=== PATIENT | female | born 1990 | race Caucasian/White ===

== ENCOUNTER 2017-10-11 13:46 | Inpatient (IN) | payer BC, OTHER ==
[~2017-10-11] VITALS: Ht 170.2 cm; Wt 113.9 kg
[2017-10-11] MEDS ORDERED: SODIUM CHLORIDE FLUSH 10ML SYR IVF ONE (14:30)
[2017-10-11] MEDS ORDERED: NAPR220C2 PO (14:48)
[2017-10-11 14:57] LABS: BASOPHILS # (AUTO) 0.05 x10^3/uL (0-0.1); BASOPHILS % (AUTO) 1 % (0-1); EOSINOPHILS # (AUTO) 0.12 x10^3/uL (0-0.4); EOSINOPHILS % (AUTO) 1 % (1-7); LYMPHOCYTES # (AUTO) 1.91 x10^3/uL (1-3.4); LYMPHOCYTES % (AUTO) 17 % (22-44); MD NO; MEAN CORPUSCULAR HEMOGLOBIN 29.3 pg (27.0-34.8); MEAN CORPUSCULAR HGB CONC 33.8 g/dL (32.4-35.8); MEAN CORPUSCULAR VOLUME 86.8 fL (80-100); MEAN PLATELET VOLUME 7.5 fL (7.4-10.4); MONOCYTES # (AUTO) 0.82 x10^3/uL (0.2-0.8); MONOCYTES % (AUTO) 7 % (2-9); NEUTROPHILS % (AUTO) 74 % (42-75); PLATELET COUNT 411 x10^3/uL (130-400); RED BLOOD COUNT 5.15 x10^6/uL (3.82-5.3); RED CELL DISTRIBUTION WIDTH 14.3 % (9.6-15.2)
[2017-10-11 15:07] LABS: ALANINE AMINOTRANSFERASE 601 U/L (12-78); ALBUMIN 3.8 g/dL (3.4-5.0); ANION GAP 8 mmol/L (5-15); CALCIUM 8.8 mg/dL (8.5-10.1); CHLORIDE 105 mmol/L (98-107); CREATININE 0.86 mg/dL (0.55-1.02)
[2017-10-11] MEDS ORDERED: FAMOTIDINE 20 MG TABLET ONE (15:07)
[2017-10-11] MEDS ORDERED: ONDANSETRON ODT 4 MG ONE (15:08)
[2017-10-11] MEDS ORDERED: MAALOX/HYOSCYAMINE/LIDOCAINE 45 ML BTL ONE (15:08)
[2017-10-11 15:12] LABS: ALKALINE PHOSPHATASE 183 U/L (45-117); TOTAL PROTEIN 8.2 g/dL (6.4-8.2)
[2017-10-11] MEDS ORDERED: ONDANSETRON ODT 4 MG PO ONE (15:30)
[2017-10-11] MEDS ORDERED: SODIUM CHLORIDE 0.9% 1,000ML IVBOLUS ONE (15:30)
[2017-10-11] MEDS ORDERED: morphine SULFATE 10 MG/ML, 1ML IVPush ONE (15:30)
[2017-10-11] MEDS ORDERED: MAALOX/HYOSCYAMINE/LIDOCAINE 45 ML BTL PO ONE (15:30)
[2017-10-11] MEDS ORDERED: FAMOTIDINE 20 MG TABLET PO ONE (15:30)
[2017-10-11 15:38] LABS: CULTURE INDICATED? YES; MICROSCOPIC INDICATED
[2017-10-11] MEDS ORDERED: MORPHINE SULFATE 4 MG/ML, 1ML ONE (15:48)
[2017-10-11] MEDS ORDERED: CEFOTETAN PMX 1GM/50ML 50 ML ONE (17:17)
[2017-10-11] MEDS: CEFOTETAN PMX 1GM/50ML 50 ML IVPB SCH (17:21)
[2017-10-11] MEDS: D5%-0.45NACL+KCL 20MEQ 1,000 ML IV SCH (18:10)
[2017-10-11 18:22] VITALS: BP 149/87
[2017-10-11 19:23] VITALS: BP 140/85
[2017-10-11] MEDS: FAMOTIDINE 20 MG/2 ML IVPush SCH (21:25)
[2017-10-11] MEDS: morphine SULFATE 10 MG/ML, 1ML IVPush PRN (22:52)
[2017-10-12 00:23] VITALS: BP 110/69
[2017-10-12] MEDS: D5%-0.45NACL+KCL 20MEQ 1,000 ML IV SCH ×3 (03:40→21:25)
[2017-10-12] MEDS: morphine SULFATE 10 MG/ML, 1ML IVPush PRN ×5 (03:40→18:37)
[2017-10-12 05:49] LABS: ALBUMIN 3.1 g/dL (3.4-5.0); ANION GAP 5 mmol/L (5-15); CALCIUM 8.4 mg/dL (8.5-10.1); CHLORIDE 108 mmol/L (98-107)
[2017-10-12 05:54] LABS: ALANINE AMINOTRANSFERASE 425 U/L (12-78); ALKALINE PHOSPHATASE 146 U/L (45-117); CREATININE 0.89 mg/dL (0.55-1.02)
[2017-10-12] MEDS: CEFOTETAN PMX 1GM/50ML 50 ML IVPB SCH ×2 (05:56→18:24)
[2017-10-12 05:58] LABS: BASOPHILS # (AUTO) 0.04 x10^3/uL (0-0.1); BASOPHILS % (AUTO) 0 % (0-1); EOSINOPHILS # (AUTO) 0.16 x10^3/uL (0-0.4); EOSINOPHILS % (AUTO) 2 % (1-7); LYMPHOCYTES # (AUTO) 2.24 x10^3/uL (1-3.4); LYMPHOCYTES % (AUTO) 24 % (22-44); MD NO; MEAN CORPUSCULAR HEMOGLOBIN 29.5 pg (27.0-34.8); MEAN CORPUSCULAR HGB CONC 33.7 g/dL (32.4-35.8); MEAN CORPUSCULAR VOLUME 87.4 fL (80-100); MEAN PLATELET VOLUME 7.6 fL (7.4-10.4); MONOCYTES # (AUTO) 0.81 x10^3/uL (0.2-0.8); MONOCYTES % (AUTO) 9 % (2-9); NEUTROPHILS # (AUTO) 6.29 x10^3/uL (1.8-6.8); NEUTROPHILS % (AUTO) 66 % (42-75); PLATELET COUNT 347 x10^3/uL (130-400); RED BLOOD COUNT 4.44 x10^6/uL (3.82-5.3); RED CELL DISTRIBUTION WIDTH 13.8 % (9.6-15.2)
[2017-10-12 07:24] VITALS: BP 112/76
[2017-10-12] MEDS: FAMOTIDINE 20 MG/2 ML IVPush SCH ×2 (09:01→21:28)
[2017-10-12 14:30] VITALS: BP 107/74
[2017-10-12] MEDS: ONDANSETRON 2MG/ML, 2ML IVPush PRN (15:52)
[2017-10-12 19:11] VITALS: BP 113/75
[2017-10-12] MEDS ORDERED: PROMETHAZINE 25 MG SUPP PR PRN (20:30)
[2017-10-13 01:48] VITALS: BP 115/75
[2017-10-13] MEDS: CEFOTETAN PMX 1GM/50ML 50 ML IVPB SCH (05:25)
[2017-10-13 05:29] LABS: BASOPHILS # (AUTO) 0.05 x10^3/uL (0-0.1); BASOPHILS % (AUTO) 1 % (0-1); EOSINOPHILS # (AUTO) 0.22 x10^3/uL (0-0.4); EOSINOPHILS % (AUTO) 2 % (1-7); LYMPHOCYTES # (AUTO) 2.45 x10^3/uL (1-3.4); LYMPHOCYTES % (AUTO) 25 % (22-44); MD NO; MEAN CORPUSCULAR HEMOGLOBIN 29.5 pg (27.0-34.8); MEAN CORPUSCULAR HGB CONC 33.6 g/dL (32.4-35.8); MEAN CORPUSCULAR VOLUME 87.8 fL (80-100); MEAN PLATELET VOLUME 7.8 fL (7.4-10.4); MONOCYTES # (AUTO) 0.98 x10^3/uL (0.2-0.8); MONOCYTES % (AUTO) 10 % (2-9); NEUTROPHILS # (AUTO) 6.09 x10^3/uL (1.8-6.8); NEUTROPHILS % (AUTO) 62 % (42-75); PLATELET COUNT 350 x10^3/uL (130-400); RED BLOOD COUNT 4.22 x10^6/uL (3.82-5.3)
[2017-10-13 05:50] LABS: BILIRUBIN, DIRECT 0.2 mg/dL (0.1-0.2); BILIRUBIN,INDIRECT 0.5 mg/dL (0.0-2.0); BILIRUBIN,TOTAL 0.7 mg/dL (0.2-1.0); TOTAL PROTEIN 7.2 g/dL (6.4-8.2)
[2017-10-13] MEDS: D5%-0.45NACL+KCL 20MEQ 1,000 ML IV SCH ×2 (06:23→16:23)
[2017-10-13 07:52] VITALS: BP 119/79
[2017-10-13] MEDS: FAMOTIDINE 20 MG/2 ML IVPush SCH ×2 (08:26→21:26)
[2017-10-13] MEDS: morphine SULFATE 10 MG/ML, 1ML IVPush PRN ×2 (08:27→10:28)
[2017-10-13] MEDS ORDERED: ROCURONIUM 10 MG/ML,10ML ONE (10:13)
[2017-10-13] MEDS ORDERED: CEFOTETAN 1 GM ONE (10:13)
[2017-10-13] MEDS ORDERED: SUCCINYLCHOLINE 20 MG/ML, 10ML ONE (10:13)
[2017-10-13] MEDS: ONDANSETRON 2MG/ML, 2ML IVPush PRN ×2 (10:31→14:36)
[2017-10-13] MEDS ORDERED: BUPIVACAINE/PF 0.5% ONE (11:54)
[2017-10-13] MEDS ORDERED: EPINEPHRINE 1 MG/ML, 1ML ONE (11:54)
[2017-10-13] MEDS ORDERED: FENTANYL PF 250 MCG/5ML ONE (12:02)
[2017-10-13] MEDS ORDERED: PROPOFOL 10 MG/ML, 20ML ONE (12:03)
[2017-10-13] MEDS ORDERED: MIDAZOLAM 1 MG/ML, 2ML ONE (12:13)
[2017-10-13] MEDS ORDERED: OXYcodone 5 MG/5 ML ORAL.SOL UDC PO PRN (12:30)
[2017-10-13] MEDS ORDERED: hydrALAzine 20 MG/ML, 1ML IV PRN (12:30)
[2017-10-13] MEDS ORDERED: ONDANSETRON 2MG/ML, 2ML IVPush PRN (12:30)
[2017-10-13] MEDS ORDERED: PROMETHAZINE 25 MG/ML, 1ML IV PRN (12:30)
[2017-10-13] MEDS ORDERED: ACETAMINOPHEN 325 MG TABLET PO PRN (12:30)
[2017-10-13] MEDS ORDERED: LABETALOL 5MG/ML, 20ML IV PRN (12:30)
[2017-10-13] MEDS ORDERED: MEPERIDINE/PF 25MG/0.5ML IVPush PRN (12:30)
[2017-10-13] MEDS ORDERED: FENTANYL PF 100 MCG/2ML IV PRN (12:30)
[2017-10-13] MEDS ORDERED: HYDROmorphone 1 MG/ML, 1ML IV PRN (12:30)
[2017-10-13] MEDS ORDERED: BUPIVACAINE/PF-EPI 0.5% 1:200K IM ONE (12:33)
[2017-10-13] MEDS ORDERED: THROMBIN 5,000 UNIT VIAL TP ONE (12:53)
[2017-10-13] MEDS ORDERED: GLUCAGON 1 MG ONE (13:10)
[2017-10-13] MEDS ORDERED: ONDANSETRON 2MG/ML, 2ML ONE ×2 (13:25→14:35)
[2017-10-13] MEDS ORDERED: KETOROLAC 30 MG/1 ML ONE (13:25)
[2017-10-13] MEDS ORDERED: DEXAMETHASONE 4 MG/ML, 1ML ONE (13:26)
[2017-10-13] MEDS ORDERED: OXYcodone 5 MG/5 ML ORAL.SOL UDC ONE (13:55)
[2017-10-13] MEDS ORDERED: FENTANYL PF 100 MCG/2ML ONE (13:55)
[2017-10-13 15:00] VITALS: BP 133/67
[2017-10-13] MEDS: HYDROmorphone 2 MG/ML, 1ML IV PRN ×5 (16:07→22:54)
[2017-10-13] MEDS: ONDANSETRON 2MG/ML, 2ML IV PRN (17:32)
[2017-10-13 18:35] VITALS: BP 110/63
[2017-10-13 21:05] VITALS: BP 127/65
[2017-10-13] MEDS: PROMETHAZINE 25 MG SUPP PR PRN (21:26)
[2017-10-13 22:43] VITALS: BP 128/69
[2017-10-14] MEDS: HYDROmorphone 2 MG/ML, 1ML IV PRN ×6 (00:06→06:51)
[2017-10-14] MEDS: CEFOTETAN PMX 2GM/50ML 50 ML IV SCH ×2 (00:06→12:42)
[2017-10-14] MEDS: D5%-0.45NACL+KCL 20MEQ 1,000 ML IV SCH ×3 (00:45→18:03)
[2017-10-14 03:09] VITALS: BP 129/53
[2017-10-14] MEDS: PROMETHAZINE 25 MG SUPP PR PRN ×2 (03:09→09:19)
[2017-10-14 05:20] LABS: BASOPHILS # (AUTO) 0.08 x10^3/uL (0-0.1); BASOPHILS % (AUTO) 1 % (0-1); EOSINOPHILS # (AUTO) 0.01 x10^3/uL (0-0.4); EOSINOPHILS % (AUTO) 0 % (1-7); LYMPHOCYTES # (AUTO) 1.88 x10^3/uL (1-3.4); LYMPHOCYTES % (AUTO) 21 % (22-44); MD NO; MEAN CORPUSCULAR HEMOGLOBIN 29.3 pg (27.0-34.8); MEAN CORPUSCULAR HGB CONC 33.8 g/dL (32.4-35.8); MEAN CORPUSCULAR VOLUME 86.6 fL (80-100); MEAN PLATELET VOLUME 7.6 fL (7.4-10.4); MONOCYTES # (AUTO) 0.75 x10^3/uL (0.2-0.8); MONOCYTES % (AUTO) 8 % (2-9); NEUTROPHILS # (AUTO) 6.43 x10^3/uL (1.8-6.8); NEUTROPHILS % (AUTO) 70 % (42-75); PLATELET COUNT 318 x10^3/uL (130-400); RED BLOOD COUNT 4.01 x10^6/uL (3.82-5.3)
[2017-10-14 05:32] LABS: ALANINE AMINOTRANSFERASE 589 U/L (12-78); ALBUMIN 2.9 g/dL (3.4-5.0); ANION GAP 8 mmol/L (5-15); CALCIUM 8.6 mg/dL (8.5-10.1); CHLORIDE 107 mmol/L (98-107)
[2017-10-14 05:34] LABS: ALKALINE PHOSPHATASE 250 U/L (45-117); BILIRUBIN,TOTAL 1.5 mg/dL (0.2-1.0); CREATININE 0.83 mg/dL (0.55-1.02); TOTAL PROTEIN 6.9 g/dL (6.4-8.2)
[2017-10-14 06:48] VITALS: BP 125/89
[2017-10-14] MEDS: ONDANSETRON 2MG/ML, 2ML IV PRN ×2 (06:57→14:12)
[2017-10-14] MEDS ORDERED: HYDROmorphone 2 MG/ML, 1ML IV PRN (07:30)
[2017-10-14] MEDS ORDERED: HYDROmorphone 1 MG/ML, 1ML IV PRN (08:30)
[2017-10-14] MEDS ORDERED: HYDROmorphone PCA 30 MG/30 ML IV PRN ×2 (08:30→09:00)
[2017-10-14 09:02] VITALS: BP 117/76
[2017-10-14] MEDS: FAMOTIDINE 20 MG/2 ML IVPush SCH ×2 (09:17→21:11)
[2017-10-14] MEDS ORDERED: HYDROmorphone 2 MG/ML, 1ML ONE ×3 (10:13→16:54)
[2017-10-14] MEDS: HYDROmorphone 1 MG/ML, 1ML IV PRN ×3 (10:15→17:03)
[2017-10-14 13:32] VITALS: BP 125/74
[2017-10-14] MEDS ORDERED: ENOXAPARIN 30 MG/0.3 ML ONE (14:53)
[2017-10-14] MEDS: ENOXAPARIN 30 MG/0.3 ML SQ SCH (14:57)
[2017-10-14 18:53] VITALS: BP 120/72
[2017-10-15] MEDS: CEFOTETAN PMX 2GM/50ML 50 ML IV SCH ×2 (00:24→11:23)
[2017-10-15] MEDS: D5%-0.45NACL+KCL 20MEQ 1,000 ML IV SCH ×2 (01:49→11:05)
[2017-10-15] MEDS: ENOXAPARIN 30 MG/0.3 ML SQ SCH ×2 (01:49→14:35)
[2017-10-15 02:15] VITALS: BP 117/70
[2017-10-15 05:48] LABS: BASOPHILS # (AUTO) 0.05 x10^3/uL (0-0.1); BASOPHILS % (AUTO) 1 % (0-1); EOSINOPHILS % (AUTO) 2 % (1-7); LYMPHOCYTES # (AUTO) 3.21 x10^3/uL (1-3.4); LYMPHOCYTES % (AUTO) 31 % (22-44); MD NO; MEAN CORPUSCULAR HEMOGLOBIN 29.4 pg (27.0-34.8); MEAN CORPUSCULAR HGB CONC 33.3 g/dL (32.4-35.8); MEAN CORPUSCULAR VOLUME 88.1 fL (80-100); MEAN PLATELET VOLUME 7.7 fL (7.4-10.4); MONOCYTES # (AUTO) 0.85 x10^3/uL (0.2-0.8); MONOCYTES % (AUTO) 8 % (2-9); NEUTROPHILS # (AUTO) 5.91 x10^3/uL (1.8-6.8); NEUTROPHILS % (AUTO) 58 % (42-75); PLATELET COUNT 338 x10^3/uL (130-400); RED CELL DISTRIBUTION WIDTH 14.1 % (9.6-15.2)
[2017-10-15 06:00] LABS: CHLORIDE 104 mmol/L (98-107)
[2017-10-15 06:43] LABS: ALANINE AMINOTRANSFERASE 435 U/L (12-78); ALBUMIN 2.9 g/dL (3.4-5.0); ALKALINE PHOSPHATASE 214 U/L (45-117); ANION GAP 8 mmol/L (5-15); BILIRUBIN, DIRECT 0.3 mg/dL (0.1-0.2); BILIRUBIN,TOTAL 0.8 mg/dL (0.2-1.0); CALCIUM 8.2 mg/dL (8.5-10.1); CREATININE 1.11 mg/dL (0.55-1.02); TOTAL PROTEIN 6.9 g/dL (6.4-8.2)
[2017-10-15 08:50] VITALS: BP 120/65
[2017-10-15] MEDS: FAMOTIDINE 20 MG/2 ML IVPush SCH ×2 (09:26→20:27)
[2017-10-15] MEDS ORDERED: ACETAMINOPHEN 500 MG TABLET ONE (09:44)
[2017-10-15] MEDS ORDERED: ACETAMINOPHEN 500 MG TABLET PO PRN ×2 (10:00→18:00)
[2017-10-15] MEDS ORDERED: HYDROmorphone 1 MG/ML, 1ML IV PRN (11:00)
[2017-10-15 14:31] VITALS: BP 122/72
[2017-10-15] MEDS: ONDANSETRON 2MG/ML, 2ML IV PRN (14:35)
[2017-10-15 19:48] VITALS: BP 117/68
[2017-10-16] MEDS: CEFOTETAN PMX 2GM/50ML 50 ML IV SCH ×2 (00:23→12:39)
[2017-10-16] MEDS: OXYcodone/APAP 7.5/325MG TABLET PO PRN ×6 (00:23→20:35)
[2017-10-16 02:46] VITALS: BP 105/68
[2017-10-16] MEDS: ENOXAPARIN 30 MG/0.3 ML SQ SCH ×2 (02:48→14:30)
[2017-10-16 05:20] LABS: BASOPHILS # (AUTO) 0.04 x10^3/uL (0-0.1); BASOPHILS % (AUTO) 0 % (0-1); EOSINOPHILS # (AUTO) 0.14 x10^3/uL (0-0.4); EOSINOPHILS % (AUTO) 2 % (1-7); LYMPHOCYTES # (AUTO) 2.74 x10^3/uL (1-3.4); LYMPHOCYTES % (AUTO) 29 % (22-44); MD NO; MEAN CORPUSCULAR HEMOGLOBIN 29.9 pg (27.0-34.8); MEAN CORPUSCULAR VOLUME 88.1 fL (80-100); MEAN PLATELET VOLUME 7.7 fL (7.4-10.4); MONOCYTES # (AUTO) 0.89 x10^3/uL (0.2-0.8); MONOCYTES % (AUTO) 9 % (2-9); NEUTROPHILS # (AUTO) 5.77 x10^3/uL (1.8-6.8); NEUTROPHILS % (AUTO) 60 % (42-75); PLATELET COUNT 350 x10^3/uL (130-400); RED CELL DISTRIBUTION WIDTH 13.6 % (9.6-15.2)
[2017-10-16 05:26] LABS: CHLORIDE 105 mmol/L (98-107)
[2017-10-16 05:37] LABS: ALANINE AMINOTRANSFERASE 309 U/L (12-78); ALBUMIN 2.9 g/dL (3.4-5.0); ALKALINE PHOSPHATASE 181 U/L (45-117); ANION GAP 4 mmol/L (5-15); BILIRUBIN,TOTAL 0.6 mg/dL (0.2-1.0); CALCIUM 8.8 mg/dL (8.5-10.1); CREATININE 1.04 mg/dL (0.55-1.02); TOTAL PROTEIN 7.3 g/dL (6.4-8.2)
[2017-10-16 07:05] VITALS: BP 116/75
[2017-10-16] MEDS: FAMOTIDINE 20 MG/2 ML IVPush SCH ×2 (08:49→20:34)
[2017-10-16] MEDS: ONDANSETRON 2MG/ML, 2ML IV PRN (13:26)
[2017-10-16 15:45] VITALS: BP 123/84
[2017-10-16 20:36] VITALS: BP 118/75
[2017-10-17] MEDS: CEFOTETAN PMX 2GM/50ML 50 ML IV SCH (00:32)
[2017-10-17] MEDS: OXYcodone/APAP 7.5/325MG TABLET PO PRN ×3 (00:32→08:17)
[2017-10-17] MEDS: ENOXAPARIN 30 MG/0.3 ML SQ SCH (02:30)
[2017-10-17 02:59] VITALS: BP 104/67
[2017-10-17 05:15] LABS: BASOPHILS # (AUTO) 0.03 x10^3/uL (0-0.1); BASOPHILS % (AUTO) 0 % (0-1); EOSINOPHILS # (AUTO) 0.32 x10^3/uL (0-0.4); EOSINOPHILS % (AUTO) 4 % (1-7); LYMPHOCYTES % (AUTO) 28 % (22-44); MD NO; MEAN CORPUSCULAR HEMOGLOBIN 29.3 pg (27.0-34.8); MEAN CORPUSCULAR HGB CONC 33.7 g/dL (32.4-35.8); MEAN CORPUSCULAR VOLUME 86.9 fL (80-100); MEAN PLATELET VOLUME 7.6 fL (7.4-10.4); MONOCYTES # (AUTO) 0.64 x10^3/uL (0.2-0.8); MONOCYTES % (AUTO) 8 % (2-9); NEUTROPHILS # (AUTO) 4.99 x10^3/uL (1.8-6.8); NEUTROPHILS % (AUTO) 60 % (42-75); PLATELET COUNT 370 x10^3/uL (130-400); RED CELL DISTRIBUTION WIDTH 13.2 % (9.6-15.2)
[2017-10-17 05:27] LABS: CHLORIDE 103 mmol/L (98-107)
[2017-10-17 05:39] LABS: ALANINE AMINOTRANSFERASE 203 U/L (12-78); ALBUMIN 2.8 g/dL (3.4-5.0); ALKALINE PHOSPHATASE 159 U/L (45-117); ANION GAP 7 mmol/L (5-15); BILIRUBIN,TOTAL 0.4 mg/dL (0.2-1.0); CALCIUM 9.1 mg/dL (8.5-10.1); CREATININE 1.09 mg/dL (0.55-1.02)
[2017-10-17 07:38] VITALS: BP 113/67
[2017-10-17] MEDS: FAMOTIDINE 20 MG/2 ML IVPush SCH (08:17)
[2017-10-17] MEDS ORDERED: DOCUSATE 100 MG CAPSULE PO SCH (09:29)
[2017-10-17] MEDS ORDERED: OXYC-306 PO (12:03)
== END 2017-10-17 12:20 | disposition home or self-care (01) | DRG 417 ==
LOC: ED 17:01 → EDIP 17:08 → 4NOR 18:01 → DCLOUNGE 10-17 12:03
PROVIDERS: ADMIT Surgery; ATTEND Surgery
PROC: BF131ZZ Fluoroscopy of Gallbladder and Bile Ducts using Low Osmolar Contrast (ICD-10-PCS; 2017-10-13)
PROC: 0FT44ZZ Resection of Gallbladder, Percutaneous Endoscopic Approach (ICD-10-PCS; principal; 2017-10-13 12:15)
DX: K80.20 Calculus of gallbladder without cholecystitis without obstruction (principal); K85.10 Biliary acute pancreatitis without necrosis or infection; K76.0 Fatty (change of) liver, not elsewhere classified; K92.2 Gastrointestinal hemorrhage, unspecified; E66.9 Obesity, unspecified; G89.18 Other acute postprocedural pain; Z68.39 Body mass index [BMI] 39.0-39.9, adult; K21.9 Gastro-esophageal reflux disease without esophagitis; K59.00 Constipation, unspecified; K82.8 Other specified diseases of gallbladder; Z88.0 Allergy status to penicillin
CPT/HCPCS: 36415; 74181; 74300; 76700; 80053; 80076; 81001; 82248; 83690; 84703; 85025; 86677; 87086; 88304; 96361; 96374; J0171; J1100; J1170; J1650; J1885; J2250; J2405; J2704; J3010; J3490; Q0162; J0330; J1610; J2270; J3480; J7030; S0028; S0074

== ENCOUNTER 2018-05-06 10:33 | Emergency (ER) | payer BC ==
[~2018-05-06] VITALS: Ht 170.2 cm; Wt 112.0 kg
[~2018-05-06 10:33] MED LIST: NAPR220C2 PO; OXYC-306 PO
[2018-05-06] MEDS ORDERED: SODIUM CHLORIDE 0.9% 1,000ML IVBOLUS ONE (12:00)
[2018-05-06] MEDS ORDERED: ONDANSETRON 2MG/ML, 2ML IVPush ONE (12:00)
[2018-05-06] MEDS ORDERED: SODIUM CHLORIDE FLUSH 10ML SYR IVF ONE (12:00)
[2018-05-06] MEDS ORDERED: ONDANSETRON 2MG/ML, 2ML ONE (12:02)
[2018-05-06 12:18] LABS: BASOPHILS # (AUTO) 0.04 x10^3/uL (0-0.1); BASOPHILS % (AUTO) 1 % (0-1); EOSINOPHILS # (AUTO) 0.06 x10^3/uL (0-0.4); EOSINOPHILS % (AUTO) 1 % (1-7); LYMPHOCYTES # (AUTO) 1.95 x10^3/uL (1-3.4); LYMPHOCYTES % (AUTO) 30 % (22-44); MD NO; MEAN CORPUSCULAR HEMOGLOBIN 30.2 pg (27.0-34.8); MEAN CORPUSCULAR HGB CONC 34.5 g/dL (32.4-35.8); MEAN CORPUSCULAR VOLUME 87.5 fL (80-100); MEAN PLATELET VOLUME 7.6 fL (7.4-10.4); MONOCYTES # (AUTO) 0.67 x10^3/uL (0.2-0.8); MONOCYTES % (AUTO) 10 % (2-9); NEUTROPHILS # (AUTO) 3.74 x10^3/uL (1.8-6.8); NEUTROPHILS % (AUTO) 58 % (42-75); PLATELET COUNT 336 x10^3/uL (130-400); RED BLOOD COUNT 4.86 x10^6/uL (3.82-5.3); RED CELL DISTRIBUTION WIDTH 13.1 % (9.6-15.2)
[2018-05-06 12:25] LABS: ALBUMIN 3.6 g/dL (3.4-5.0); ANION GAP 6 mmol/L (5-15); CALCIUM 8.7 mg/dL (8.5-10.1); CHLORIDE 110 mmol/L (98-107)
[2018-05-06 12:30] LABS: ALANINE AMINOTRANSFERASE 56 U/L (12-78); ALKALINE PHOSPHATASE 76 U/L (45-117); BILIRUBIN,TOTAL 0.4 mg/dL (0.2-1.0); CREATININE 0.93 mg/dL (0.55-1.02); TOTAL PROTEIN 7.8 g/dL (6.4-8.2)
[2018-05-06 12:41] LABS: CULTURE INDICATED? YES; MICROSCOPIC INDICATED
[2018-05-06] MEDS ORDERED: CEFTRIAXONE PMX 1GM/50ML 50 ML ONE (13:13)
[2018-05-06 13:18] VITALS: BP 134/81
[2018-05-06] MEDS ORDERED: CEFTRIAXONE 1,000 MG in SODIUM CHLORIDE 0.9% 50 ML IVPB ONE (13:30)
== END 2018-05-06 14:24 | disposition home or self-care (01) ==
LOC: ED 12:15
DX: N30.90 Cystitis, unspecified without hematuria (principal); R42 Dizziness and giddiness
CPT/HCPCS: 36415; 80053; 81001; 83605; 84145; 84703; 85025; 87086; 87147; 96361; 96365; 96375; 99285; J0696; J2405; J7030

== ENCOUNTER 2021-04-11 10:41 | Emergency (ER) | payer BC, MEDICAID, OTHER ==
[~2021-04-11] VITALS: Ht 170.2 cm; Wt 122.0 kg
[~2021-04-11 10:41] MED LIST changes: -OXYC-306 PO; +OXYC1TAB17 PO
--- NOTE | 2021-04-11 11:14 | NUR ---
air quality chemist note: Pt to room from lobby.
--- NOTE | 2021-04-11 11:19 | NUR ---
PATIENT WALKED BACK FROM TRIAGE WITH CHIEF C/O ABD PAIN, N/V SINCE YESTERDAY. PER PATIENT PAIN IS ON THE RIGHT SIDE AND RADIATES TO HER LOWER BACK. INCREASED FREQUENCY BUT NOT PAINFUL URINATION. CONNECTED TO MONITOR, VSS, ACCOMPANIED BY FRIEND, CALL LIGHT WITHIN REACH.
[2021-04-11] MEDS ORDERED: ONDANSETRON 2MG/ML, 2ML ONE (11:52)
[2021-04-11] MEDS ORDERED: MORPHINE SULFATE 4 MG/ML, 1ML ONE (11:52)
[2021-04-11] MEDS ORDERED: ONDANSETRON 2MG/ML, 2ML IVPush ONE (12:00)
[2021-04-11] MEDS ORDERED: SODIUM CHLORIDE FLUSH 10ML SYR IVF ONE (12:00)
[2021-04-11] MEDS ORDERED: SODIUM CHLORIDE 0.9% 1,000ML IVBOLUS ONE (12:00)
[2021-04-11] MEDS ORDERED: MORPHINE SULFATE 4 MG/ML, 1ML IVPush PRN (12:00)
--- NOTE | 2021-04-11 12:01 | NUR ---
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 EDUCATED PATIENT ON NEED FOR URINE SAMPLE.
[2021-04-11 12:12] LABS: BASOPHILS % (AUTO) 1 % (0-1); EOSINOPHILS % (AUTO) 1 % (1-7); LYMPHOCYTES % (AUTO) 20 % (22-44); MEAN PLATELET VOLUME 7.5 fL (7.4-10.4); MONOCYTES % (AUTO) 7 % (2-9); NEUTROPHILS % (AUTO) 72 % (42-75); PLATELET COUNT 393 x10^3/uL (130-400); RED BLOOD COUNT 5.27 x10^6/uL (3.82-5.3); RED CELL DISTRIBUTION WIDTH 13.1 % (9.6-15.2)
[2021-04-11 12:17] LABS: CHLORIDE 108 mmol/L (98-107)
[2021-04-11 12:31] LABS: ALANINE AMINOTRANSFERASE 93 U/L (12-78); ALBUMIN 4.1 g/dL (3.4-5.0); ALKALINE PHOSPHATASE 64 U/L (45-117); ANION GAP 10 mmol/L (5-15); BILIRUBIN,TOTAL 0.4 mg/dL (0.2-1.0); CREATININE 1.07 mg/dL (0.55-1.02); TOTAL PROTEIN 8.2 g/dL (6.4-8.2)
--- NOTE | 2021-04-11 12:33 | NUR ---
PATIENT AMBULATED TO BATHROOM WITH STEADY GAIT FOR URINE SAMPLE.
--- NOTE | 2021-04-11 12:44 | NUR ---
URINE COLLECTED AND SENT TO LAB. PATIENT TO CT SCAN.
[2021-04-11 13:00] LABS: MICROSCOPIC INDICATED
[2021-04-11] MEDS ORDERED: KETOROLAC 30 MG/1 ML ONE (13:14)
--- NOTE | 2021-04-11 13:18 | NUR ---
PATIENT MEDICATED PER eMAR, CONNECTED TO MONITOR, VSS, FRIEND AT BEDSIDE, CALL LIGHT WITHIN REACH. PATIENT UP FOR RECHECK.
[2021-04-11] MEDS ORDERED: KETOROLAC 30 MG/1 ML IVPush ONE (13:30)
[2021-04-11] MEDS ORDERED: CEFDINIR 300 MG CAPSULE PO/NG ONE (14:30)
[2021-04-11] MEDS ORDERED: CEFDINIR 300 MG CAPSULE ONE (14:45)
[2021-04-11 14:47] VITALS: BP 126/88
--- NOTE | 2021-04-11 14:50 | NUR ---
IV removed with tip intact. Patient aregiver given discharge instructions and prescription and they have confirmed that they understand the instructions. Patient ambulatory with steady gait. NAD, all questions answered appropriately, denies additional needs at this time. No personal belongings left in room after discharge.
== END 2021-04-11 14:51 | disposition home or self-care (01) ==
LOC: ED 13:36
DX: N20.1 Calculus of ureter (principal); R10.31 Right lower quadrant pain; R11.2 Nausea with vomiting, unspecified
CPT/HCPCS: 36415; 74176; 80053; 81001; 83690; 84703; 85025; 87086; 96361; 96374; 96375; 99285; J1885; J2270; J2405; J7030